=== PATIENT | male | born 1975 | race Caucasian/White ===

== ENCOUNTER 2022-10-24 04:29 | Inpatient (IN) | payer MEDICARE ==
[~2022-10-24] VITALS: Ht 190.5 cm; Wt 226.8 kg
[2022-10-24 04:43] LABS: BASOPHILS ABSOLUTE AUTO 0.03 K/mm3 (0.00-0.23); BASOPHILS PERCENT AUTO 0 % (0-2); EOSINOPHILS ABSOLUTE AUTO 0.04 K/mm3 (0.00-0.68); EOSINOPHILS PERCENT AUTO 1 % (0-6); Hematocrit 51.7 % (37.0-53.0); Hemoglobin 15.8 g/dL (13.5-17.5); IMMATURE GRAN ABSOLUTE AUTO 0.03 K/mm3 (0.00-0.10); IMMATURE GRAN PERCENT AUTO 0 % (0-1); LYMPHOCYTES ABSOLUTE AUTO 0.81 K/mm3 (0.84-5.20); LYMPHOCYTES PERCENT AUTO 11 % (21-46); MONOCYTES ABSOLUTE AUTO 0.74 K/mm3 (0.16-1.47); MONOCYTES PERCENT AUTO 10 % (4-13); Mean Corpuscular HGB Conc 30.6 g/dL (31.5-36.5); Mean Corpuscular Volume 88 fL (80-100); Mean Platelet Volume 12.3 fL (9.1-12.4); NEUTROPHILS PERCENT AUTO 78 % (41-73); Platelet Count 120 K/mm3 (150-400); RDW Coefficient Variation 14.8 % (11.7-14.2); RDW Standard Deviation 48.5 fL (35.1-46.3); Red Blood Cell Count 5.85 M/mm3 (4.30-5.90); White Blood Cell Count 7.45 K/mm3 (4.00-11.30)
[2022-10-24 04:59] LABS: Calcium, Blood 8.4 mg/dL (8.5-10.1); Creatinine, Blood 0.76 mg/dL (0.60-1.20); Magnesium, Blood 2.5 mg/dL (1.6-2.4); Potassium, Blood 4.5 mmol/L (3.5-5.5)
[2022-10-24 05:23] LABS: Influenza A, PCR NEGATIVE (NEGATIVE); Influenza B, PCR NEGATIVE (NEGATIVE); Resp Syncytial Virus, PCR NEGATIVE (NEGATIVE)
[2022-10-24 05:45] LABS: PCO2 Venous 56.2 mmHg (38-42); pH Blood Venous 7.41 (7.34-7.37)
[2022-10-24 05:48] LABS: SARS-Cov-2 (COVID-19) PCR, MMC POSITIVE (NEGATIVE)
[2022-10-24 06:33] LABS: CPK Creatine Kinase 176 U/L (39-308)
--- NOTE | 2022-10-24 11:32 | NUR ---
Echocardiogram using 0.60ml of Definity contrast performed.
--- NOTE | 2022-10-24 18:27 | NUR ---
PT SUMMARY: PT ADMITTED IN PCU1 FOR COVID PNA. PT IS ALERT AND ORIENTED X4, OBESE ABOUT 650 LBS, ON BIPAP UPON ARRIVAL 16/10 40% FIO2, SATS KEPT ABOVE 90%, HRR SR 80-90'S, ABP 140-150'S, AFEBRILE. FIRST ATTEMPT THIS MORNING TO SWITCH PT TO HI CLIF NASAL CANNULA AT 8L PT WAS UNABLE TO TOLERATE REQUESTED THE BIPAP BACK ON, AFTER LUNCH TIME PT REQUESTED TO GO TO THE BATHROOM TO HAVE A BM PT WAS ABLE TO TOLERATE NASAL CANNULA THIS TIME AND PT WAS ABLE TO AMBULATE ASSISTED TO THE BATHROOM, BM UNSUCCESSFUL. PT HAS A LO DRAINING VIA GRAVITY, DIURESING WITH LASIX, ALSO HAS RASH ALL OVER GROIN SITE, NYSTATIN POWDER APPLIED. DIET WAS RESUMED AT LUNCH TIME PT WAS ABLE TO TOLERATE. COMPLAINED OF HEADACHE AND BACK PAIN MEDICATED WITH TYLENOL THEN TRAMADOL ONCE FOR THE SHIFT AND WAS EFFECTIVE. PT ALSO TRANSFERRED TO BARIATRIC BED FOR COMFORT. NO OTHER ISSUES ENCOUNTERED FOR THE SHIFT, PT CALLS APPROPRIATELY, WILL REPORT TO ONCOMING SHIFT
[2022-10-24 21:54] LABS: CPK Creatine Kinase 131 U/L (39-308)
[2022-10-25 04:53] LABS: BASOPHILS ABSOLUTE AUTO 0.01 K/mm3 (0.00-0.23); BASOPHILS PERCENT AUTO 0 % (0-2); EOSINOPHILS PERCENT AUTO 0 % (0-6); Hematocrit 48.6 % (37.0-53.0); Hemoglobin 15.1 g/dL (13.5-17.5); IMMATURE GRAN ABSOLUTE AUTO 0.01 K/mm3 (0.00-0.10); IMMATURE GRAN PERCENT AUTO 0 % (0-1); LYMPHOCYTES ABSOLUTE AUTO 0.88 K/mm3 (0.84-5.20); LYMPHOCYTES PERCENT AUTO 17 % (21-46); MONOCYTES ABSOLUTE AUTO 0.55 K/mm3 (0.16-1.47); MONOCYTES PERCENT AUTO 11 % (4-13); Mean Corpuscular HGB 27.3 pg (26.0-34.0); Mean Corpuscular HGB Conc 31.1 g/dL (31.5-36.5); Mean Corpuscular Volume 88 fL (80-100); Mean Platelet Volume 12.3 fL (9.1-12.4); NEUTROPHILS ABSOLUTE AUTO 3.72 K/mm3 (1.96-9.15); NEUTROPHILS PERCENT AUTO 72 % (41-73); Platelet Count 125 K/mm3 (150-400); RDW Coefficient Variation 14.8 % (11.7-14.2); RDW Standard Deviation 47.7 fL (35.1-46.3); Red Blood Cell Count 5.54 M/mm3 (4.30-5.90); White Blood Cell Count 5.17 K/mm3 (4.00-11.30)
[2022-10-25 05:15] LABS: Albumin/Globulin Ratio 0.9 (0.8-1.8); Bilirubin, Total 0.4 mg/dL (0.1-1.0); Bun/Creatinine Ratio 23.5 (12.0-20.0); Calcium, Blood 8.4 mg/dL (8.5-10.1); Creatinine, Blood 0.77 mg/dL (0.60-1.20); Globulin, Blood 3.5 g/dL (2.2-4.0); Potassium, Blood 4.2 mmol/L (3.5-5.5); Total Protein, Blood 6.5 g/dL (6.4-8.2)
--- NOTE | 2022-10-25 06:32 | NUR ---
SUMMARY PT HAS REMAINED A&O X4, ON RA, CONTINUES TO DENY CP/PRESSURE, SINUS/SB 50'S-60'S ON TELE, SBA. PLEASE SEE PREVIOUS NOTED REGARDING INSULIN PUMP. PT IS RESTING QUIETLY AT THIS TIME, CALLS FOR ASSISTANCE PRN, CALL LIGHT IN REACH, CARDIOLOGY CONSULT WAS PLACED TO . NO ACUTE CHANGES SINCE ADMIT, WCTM & REPORT TO DAY RN.
--- NOTE | 2022-10-25 06:53 | NUR ---
SUMMARY NO ACUTE CHANGES THROUGH THE NIGHT, PT REMAINS ON BIPAP PER HIS REQUEST, 29/07 40% FIO2, LUNG SOUNDS REMAIN DIMINISHED BILATERAL, PT STATES BREATHING HAS IMPROVED, SINUS 70-80'S, ULTRAM GIVEN FOR PAIN, PT CALLS FOR ASSISTANCE PRN, LO PATENT, CALVIN URINE NOTED, CALL LIGHT IN REACH, REPORT TO DAY RN
--- NOTE | 2022-10-25 17:44 | NUR ---
SHIFT SUMMARY; ASSUMED CARE AT 0700, A/A/OX4. IN BED DURING SHIFT WITH Q2 REPOSITIONING. LIFT USED FOR BOOSTING IN BED, PT ABLE TO ROLL AND ASSIST WITH TURNS. BIPAP MOST OF SHIFT WITH BREAKS FOR MEALS, ORAL CARE, AND MEDS. 10L HIGH FLOW CANNULA WHEN NOT ON BIPAP. L/S DIM T/O. MEDS PER EMAR. LO IN PLACE DRAINING CLEAR YELLOW URINE. NO ACUTE CHANGES DURING SHIFT. WILL CONTINUE TO MONITOR AND TREAT UNITL CHANGE OF SHIFT.
--- NOTE | 2022-10-26 06:04 | NUR ---
SHIFT SUMMARY A/OX4, SBA TO BSC. TELE SR 70-80S, DENIES CHEST PAIN/PRESSURE. SPO2 >92% ON BIPAP 16/12 FIO2 40% C/O CHRONIC L. SHOULDER PAIN. VSS, NO ACUTE CHANGES AT THIS TIME. BED IN LOWEST POSITION WITH CALL LIGHT IN REACH. WILL CONTINUE TO MONITOR AND REPORT TO ONCOMING RN.
--- NOTE | 2022-10-26 18:21 | NUR ---
KNOCKDOWN WORKER NOTE TRANSFER TO MEDICAL UNIT VIA WHEELCHAIR AT 1800HRS. MR ISAIAS SAID NECK PAIN IS TOLERABLE AT 5/10. TRANSFERING INDEPENDENTLY FROM BED TO CHAIR, MORE COMFORTABLE IN THE CHAIR. 8L HIGH FLOW HUMIFIFIED OXYGEN N/C, CONT PULSE OX IN THE LOW 90S. LO CATHETER TO BEDSIDE DRAINAGE BAG. CALL LIGHT IN REACH.
--- NOTE | 2022-10-26 19:09 | NUR ---
SHIFT SUMMARY/TRANSFER PT A/O X4. PLEASANT AND COOPERATIVE WITH CARE. PT ON TELE, SR IN THE 70-80'S. PT ON HIGH FLOW NC AT 8L T/O SHIFT, WITH SPO2 >92%. PT WORKED WITH RT FREQUENTLY TODAY. RT PROVIDED PATIENT WITH FLUTTER VALVE AND PT WAS ABLE TO CLEAR SIGNIFICANT AMOUNT OF SPUTUM. 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 PT MEDICATED WITH TRAMADOL PER EMAR FOR PAIN AND WAS ABLE TO GET SOME RELIEF. PT ABLE TO TRANSFER TO BATHROOM AND CHAIR WITH SBA ASSIST. PT SPENT SHIFT IN THE RECLINER AND TOLERATED WELL. PT ORDERS CHANGED TO MEDICAL NO TELE STATUS BY PROVIDER. PT TRANSFERRED TO MEDICAL FLOOR @ APPROX [id number]. REPORT GIVEN TO TEMITOPE RENTERIA.
[2022-10-27 06:16] LABS: BASOPHILS ABSOLUTE AUTO 0.01 K/mm3 (0.00-0.23); BASOPHILS PERCENT AUTO 0 % (0-2); EOSINOPHILS ABSOLUTE AUTO 0.01 K/mm3 (0.00-0.68); EOSINOPHILS PERCENT AUTO 0 % (0-6); Hematocrit 49.8 % (37.0-53.0); Hemoglobin 15.4 g/dL (13.5-17.5); IMMATURE GRAN ABSOLUTE AUTO 0.01 K/mm3 (0.00-0.10); IMMATURE GRAN PERCENT AUTO 0 % (0-1); LYMPHOCYTES ABSOLUTE AUTO 1.24 K/mm3 (0.84-5.20); LYMPHOCYTES PERCENT AUTO 23 % (21-46); MONOCYTES PERCENT AUTO 11 % (4-13); Mean Corpuscular HGB 26.7 pg (26.0-34.0); Mean Corpuscular HGB Conc 30.9 g/dL (31.5-36.5); Mean Corpuscular Volume 87 fL (80-100); Mean Platelet Volume 12.1 fL (9.1-12.4); NEUTROPHILS ABSOLUTE AUTO 3.63 K/mm3 (1.96-9.15); NEUTROPHILS PERCENT AUTO 66 % (41-73); Platelet Count 163 K/mm3 (150-400); RDW Coefficient Variation 14.6 % (11.7-14.2); RDW Standard Deviation 46.5 fL (35.1-46.3); Red Blood Cell Count 5.76 M/mm3 (4.30-5.90)
--- NOTE | 2022-10-27 06:26 | NUR ---
PT WITH MINIMAL NEEDS, REQUEST PAIN MEDS TO BE BROUGHT WHEN ABLE AT Q4HRS.
[2022-10-27 06:36] LABS: Bun/Creatinine Ratio 28.4 (12.0-20.0); Calcium, Blood 8.5 mg/dL (8.5-10.1); Creatinine, Blood 0.81 mg/dL (0.60-1.20)
--- NOTE | 2022-10-27 16:53 | NUR ---
SHIFT SUMMARY PATIENT MEDICATED X2 FOR NECK PAIN. PATIENT REPORTS SHORTNESS OF BREATH WITH ACTIVITY. PATIENT DENIES NAUSEA. PATIENT IS ON 8L, VIA HIGH FLOW. PATIENT IS COVID+, PROPER PPE MAINTAINED THROUGHOUT SHIFT. LO IS PATENT AND DRAINING TO GRAVITY. PATIENT REPORTS HE FEELS LIKE HE IS BREATHING BETTER. PATIENT IS EATING AND DRINKING WELL. PATIENT IS A SBA WITH FWW, PATIENT DESATS WITH ACTIVITY, BUT RECOVERS WELL. PATIENT IS PLEASANT AND COOPERATIVE WITH CARE.
[2022-10-28 05:38] LABS: BASOPHILS ABSOLUTE AUTO 0.01 K/mm3 (0.00-0.23); BASOPHILS PERCENT AUTO 0 % (0-2); EOSINOPHILS ABSOLUTE AUTO 0.01 K/mm3 (0.00-0.68); EOSINOPHILS PERCENT AUTO 0 % (0-6); Hematocrit 51.7 % (37.0-53.0); Hemoglobin 16.1 g/dL (13.5-17.5); IMMATURE GRAN ABSOLUTE AUTO 0.01 K/mm3 (0.00-0.10); IMMATURE GRAN PERCENT AUTO 0 % (0-1); LYMPHOCYTES PERCENT AUTO 19 % (21-46); MONOCYTES ABSOLUTE AUTO 0.81 K/mm3 (0.16-1.47); MONOCYTES PERCENT AUTO 12 % (4-13); Mean Corpuscular HGB 26.8 pg (26.0-34.0); Mean Corpuscular HGB Conc 31.1 g/dL (31.5-36.5); Mean Corpuscular Volume 86 fL (80-100); Mean Platelet Volume 11.8 fL (9.1-12.4); NEUTROPHILS ABSOLUTE AUTO 4.75 K/mm3 (1.96-9.15); NEUTROPHILS PERCENT AUTO 69 % (41-73); Platelet Count 160 K/mm3 (150-400); RDW Coefficient Variation 14.3 % (11.7-14.2); RDW Standard Deviation 45.6 fL (35.1-46.3); White Blood Cell Count 6.89 K/mm3 (4.00-11.30)
[2022-10-28 05:59] LABS: Bun/Creatinine Ratio 25.8 (12.0-20.0); Calcium, Blood 8.3 mg/dL (8.5-10.1); Creatinine, Blood 0.85 mg/dL (0.60-1.20); Potassium, Blood 4.2 mmol/L (3.5-5.5)
--- NOTE | 2022-10-28 06:00 | NUR ---
END OF SHIFT NURSING REPORT Patient is a 47-year-old male, admitted for increased dyspnea over the last few days. COVID-19 PCR is positive. Obese 226 KG and has a bariatric air bed. He is AOX4 and able to ambulate in the room stand by assist. Chapman in Place, possible removal during the day shift. Received Benadryl IV at 2100 for hives bilateral calf's without respiratory distress. Oxygen via high flow at 8L/min to maintain Sats >90%.
--- NOTE | 2022-10-28 19:19 | NUR ---
SHIFT SUMMARY PTN ENHANCED DROPLET ISOLATION. DX PNEUMONIA/COVID. CURRENTLY RUNNING 8L HIGH FLOW O2, AT HOME RA AT BASELINE. PTN HAS LO TO KEEP DRY. PTN DID HAVE WHAT LOOKED LIKE HIVES ON LOWER EXTREMITIES, REPORT WAS THAT HE WAS POSSIBLY ALLERGIC TO TRAMADOL, BUT THEN HE DEVELOPED SOME ON HIS HANDS THIS AFTERNOON. NO SWELLING TO THE THROAT OR DIFFICULTY BREATHING. HE HAS BEEN EATING WALNUTS OVER THE LAST 2 DAYS, QUESTION OF POSSIBLE ALLERGY. WILL STOP THE WALNUTS AND TAKE BENADRYL AND PEPCID ORDERED BY DR DYE. CHRONIC PAIN TO HEAD AND NECK AREA, TREATED PER EMAR. CONTINUE TO MONITOR.
--- NOTE | 2022-10-29 17:12 | NUR ---
SHIFT SUMMARY NO ACUTE CHANGES DURING SHIFT. PT ALERT AND ORIENTED, CALLS APPROPRIATELY. PT REMAINS ON 8L, SBA TO BATHROOM. LO CATHETER REMOVED TODAY, PT VOIDING APPROPRIATELY. TRANSITIONED TO PO ABX, STILL ON IV STEROIDS. PRN PAIN MEDICATIONS ADMINISTERED X 2 DURING SHIFT. WILL CONTINUE TO MONITOR. CALL LIGHT WITHIN REACH.
--- NOTE | 2022-10-30 18:03 | NUR ---
SHIFT SUMMARY NO ACUTE CHANGES DURING SHIFT. PT ALERT AND ORIENTED, CALLS APPROPRIATELY. PT DOWN TO 5L NC. PT INDEPENDENT IN ROOM. PT MEDICATED WITH PRN PAIN MEDICATIONS X 2, EFFECTIVE. WILL CONTINUE TO MONITOR. CALL LIGHT WITHIN REACH.
--- NOTE | 2022-10-31 06:06 | NUR ---
Shift Summary Pt c/o 03/23 back pain but states 5mg of Oxycodone Q6 as ordered in EMAR is controlling pain well. On 5L O2, slept with BIPAP at night. O2 sat remained above 90% throughout the night. Pt bradycardic while asleep, HR between 50-62. Independent, up to the bathroom, continent. No acute events, pleasant and cooperative.
--- NOTE | 2022-10-31 17:47 | NUR ---
SHIFT SUMMARY NO ACUTE CHANGES DURING SHIFT. PT ALERT AND ORIENTED,CALLS APPROPRIATELY. PT DOWN TO 2L NC. PT INDEPENDENT TO BATHROOM. PRN PAIN MEDICATIONS ADMINISTERED X 2. POSSIBLE D/C IN AM. WILL CONTINUE TO MONITOR. CALL LIGHT WITHIN REACH.
--- NOTE | 2022-11-01 05:30 | NUR ---
EGG PROCESSING SUPERVISOR SUMMARY VSS. LUNG SOUNDS DIMINISHED IN LOBES, O2 AT 2L/NC. CPAP AT NIGHT. REQUESTED AND RECEIVED ANALGESIC FOR HEAD, NECK AND SHOULDER PAIN. HAS ERENDIRA RESTING QUIETLY WITH FEW INTERRUPTIONS SINCE. ISOLATION PRECAUTIONS FOR COVID CONTINUE. CALL LIGHT IN REACH. WILL CONTINUE TO MONITOR
[2022-11-01 05:58] LABS: Albumin, Blood 3.4 g/dL (3.4-5.0); Anion Gap 6 mmol/L (6-16); Blood Urea Nitrogen 22 mg/dL (8-24); Bun/Creatinine Ratio 27.9 (12.0-20.0); CO2, Blood 28 mmol/L (21-32); Calcium, Blood 8.7 mg/dL (8.5-10.1); Chloride, Blood 96 mmol/L (98-108); Creatinine, Blood 0.79 mg/dL (0.60-1.20); Glomerular Filtration Rate 112 (60-); Glucose, Blood 109 mg/dL (70-99); Phosphorus, Blood 3.9 mg/dL (2.5-4.9); Potassium, Blood 3.9 mmol/L (3.5-5.5); Sodium, Blood 130 mmol/L (136-145)
[2022-11-01] MEDS ORDERED: LISI20 PO (16:17)
[2022-11-01] MEDS ORDERED: FURO40 PO (16:18)
[2022-11-01] MEDS ORDERED: METO25 PO (16:19)
[2022-11-01] MEDS ORDERED: MONTELUKAST SOD10 M1 PO (16:34)
[2022-11-01] MEDS ORDERED: POTA10T PO (16:34)
--- NOTE | 2022-11-01 16:49 | NUR ---
PT DISCHARGED HOME. DC INSTRUCTIONS AND EDUCATION MATERIAL EXPLAINED TO PT. NO NEW QUESTIONS OR CONCERNS. IV DC'd and PT TOLERATED WELL. PT ABLE TO DRESS INDPENDENTLY. ALL BELONGINGS GATHERED AND SENT HOME WITH PT. PT TAKEN BY WHEELCHAIR TO WAITING VEHICLE.
== END 2022-11-01 16:55 | disposition home or self-care (01) | DRG 177 ==
LOC: ER 04:29 → PCU 04:30 → MEDS 09:14 → PCU 09:15 → MEDS 10-26 17:35
PROVIDERS: Internal Medicine; Student in an Organized Health Care Education/Training Program; ADMIT Internal Medicine
PROC: 8E0ZXY6 Isolation (ICD-10-PCS; principal; 2022-10-24)
PROC: XW033E5 Introduction of Remdesivir Anti-infective into Peripheral Vein, Percutaneous Approach, New Technology Group 5 (ICD-10-PCS; 2022-10-24)
PROC: 3E0333Z Introduction of Anti-inflammatory into Peripheral Vein, Percutaneous Approach (ICD-10-PCS; 2022-10-24)
PROC: XW0DXM6 Introduction of Baricitinib into Mouth and Pharynx, External Approach, New Technology Group 6 (ICD-10-PCS; 2022-10-24)
PROC: 5A09357 Assistance with Respiratory Ventilation, Less than 24 Consecutive Hours, Continuous Positive Airway Pressure (ICD-10-PCS; 2022-10-24)
PROC: 5A0935A Assistance with Respiratory Ventilation, Less than 24 Consecutive Hours, High Flow/Velocity Cannula (ICD-10-PCS; 2022-10-28)
DX: U07.1 COVID-19 (principal); I50.31 Acute diastolic (congestive) heart failure; J12.82 Pneumonia due to coronavirus disease 2019; J96.01 Acute respiratory failure with hypoxia; J15.9 Unspecified bacterial pneumonia; Z68.44 Body mass index [BMI] 60.0-69.9, adult; J45.901 Unspecified asthma with (acute) exacerbation; I11.0 Hypertensive heart disease with heart failure; E66.01 Morbid (severe) obesity due to excess calories; G25.81 Restless legs syndrome; G89.29 Other chronic pain; G47.00 Insomnia, unspecified; M54.2 Cervicalgia; R21 Rash and other nonspecific skin eruption; Z91.199 Patient's noncompliance with other medical treatment and regimen due to unspecified reason; Q07.00 Arnold-Chiari syndrome without spina bifida or hydrocephalus; Z86.711 Personal history of pulmonary embolism; Z88.6 Allergy status to analgesic agent; Z88.8 Allergy status to other drugs, medicaments and biological substances
CPT/HCPCS: 0241U; 36415; 51702; 71045; 80048; 80053; 80069; 82550; 82803; 83735; 83880; 84145; 84484; 85025; 85379; 87070; 87205; 93005; 93010; 94640; 94644; 94660; 94664; 94761; 94762; 96365-59; 96368; 96372; 96375-59; 96376; 99285-25; A9270; C8929; C9399; G0378; J0248; J0456; J0696; J1100; J1200; J1650; J1940; J2930; J7050; J7060; Q9957

== ENCOUNTER → 2022-12-27 | Outpatient (CLI) | payer MEDICARE, OTHER ==
[~2022-12-27] MED LIST: FURO40 PO; LISI20 PO; METO25 PO; MONTELUKAST SOD10 M1 PO; POTA10T PO
[2022-12-29 14:07] LABS: FREE TESTOSTERONE(DIRECT) 6.2 pg/mL (6.8-21.5); TESTOSTERONE, SERUM 151 ng/dL (264-916)
== END | disposition home or self-care (01) ==
LOC: LAB SHORT 08:40 → LAB 08:40
PROVIDERS: Family Medicine
DX: R53.83 Other fatigue (principal)
CPT/HCPCS: 84402; 84403

== ENCOUNTER → 2023-01-03 | Outpatient (CLI) | payer MEDICARE, OTHER ==
[2023-01-05 20:09] LABS: FREE TESTOSTERONE(DIRECT) 6.7 pg/mL (6.8-21.5); TESTOSTERONE, SERUM 167 ng/dL (264-916)
== END ==
LOC: LAB SHORT 09:05 → LAB 09:05
PROVIDERS: Family Medicine
DX: R86.1 Abnormal level of hormones in specimens from male genital organs (principal)
CPT/HCPCS: 84402; 84403

== ENCOUNTER → 2024-08-05 | Outpatient (CLI) | payer MEDICARE, OTHER ==
[2024-08-06 12:49] LABS: BASOPHILS ABSOLUTE AUTO 0.08 K/mm3 (0.00-0.23); BASOPHILS PERCENT AUTO 1 % (0-2); EOSINOPHILS ABSOLUTE AUTO 0.15 K/mm3 (0.00-0.68); EOSINOPHILS PERCENT AUTO 3 % (0-6); Hemoglobin 14.8 g/dL (13.5-17.5); IMMATURE GRAN ABSOLUTE AUTO 0.13 K/mm3 (0.00-0.10); IMMATURE GRAN PERCENT AUTO 2 % (0-1); LYMPHOCYTES ABSOLUTE AUTO 1.07 K/mm3 (0.84-5.20); LYMPHOCYTES PERCENT AUTO 19 % (21-46); MONOCYTES ABSOLUTE AUTO 0.62 K/mm3 (0.16-1.47); MONOCYTES PERCENT AUTO 11 % (4-13); Mean Corpuscular HGB 28.5 pg (26.0-34.0); Mean Corpuscular HGB Conc 32.2 g/dL (31.5-36.5); Mean Corpuscular Volume 89 fL (80-100); Mean Platelet Volume 11.4 fL (9.1-12.4); NEUTROPHILS ABSOLUTE AUTO 3.65 K/mm3 (1.96-9.15); NEUTROPHILS PERCENT AUTO 64 % (41-73); Platelet Count 159 K/mm3 (150-400); RDW Coefficient Variation 14.2 % (11.7-14.2); RDW Standard Deviation 45.5 fL (35.1-46.3)
[2024-08-06 14:05] LABS: Alanine Aminotransfer (ALT/SGP 28 U/L (12-78); Albumin, Blood 3.7 g/dL (3.4-5.0); Alk Phos 107 U/L (50-136); Anion Gap 11 mmol/L (3-11); Aspartate Aminotrans (AST/SGOT 19 U/L (12-37); Bilirubin, Direct 0.1 mg/dL (0.0-0.3); Bilirubin, Indirect 0.3 mg/dL (0.1-0.7); Bilirubin, Total 0.4 mg/dL (0.1-1.0); Blood Urea Nitrogen 20 mg/dL (8-24); Bun/Creatinine Ratio 20.1 (12.0-20.0); CHOL/HDL RATIO 3.2; CO2, Blood 29 mmol/L (21-32); Calcium, Blood 9.1 mg/dL (8.5-10.1); Chloride, Blood 101 mmol/L (98-108); Cholesterol 97 mg/dL (50-200); Creatinine, Blood 0.99 mg/dL (0.60-1.20); Globulin, Blood 3.7 g/dL (2.2-4.0); Glomerular Filtration Rate 95 (60-); Glucose, Blood 134 mg/dL (70-99); HDL Cholesterol 30 mg/dL (>39); LDL/HDL RATIO 1.5; Low Density Lipoprotein Chol 45 mg/dL (0-110); Potassium, Blood 4.1 mmol/L (3.5-5.5); Sodium, Blood 137 mmol/L (136-145); Total Protein, Blood 7.4 g/dL (6.4-8.2); Triglycerides 112 mg/dL (30-160); Very Low Density Lipoprot Chol 22 mg/dL (6-32)
[2024-08-09 16:59] LABS: HEPATITIS C AB CIA INTERP Negative (Negative); HEPATITIS C ANTIBODY CIA INDEX <0.02 IV
== END ==
LOC: LAB 10:52 → LAB SHORT 10:52
PROVIDERS: Family Medicine
DX: Z11.59 Encounter for screening for other viral diseases (principal); I10 Essential (primary) hypertension; R73.9 Hyperglycemia, unspecified; E78.5 Hyperlipidemia, unspecified
CPT/HCPCS: 80053; 80061; 82248; 83036; 85025; 86803